=== PATIENT | male | born 1975 | race Caucasian/White ===

== ENCOUNTER 2021-07-13 10:28 | Emergency (ER) | payer OTHER ==
[2021-07-13] MEDS ORDERED: Iopamidol 755 Mg/ML 100 ML Bottle IV ONE (11:55)
[2021-07-13] MEDS ORDERED: Ketorolac 30 MG/ML SDV IVPUSH ONE (14:24)
== END 2021-07-13 14:37 | disposition home or self-care (01) ==
LOC: FB.ED 10:28
DX: S32.019A Unspecified fracture of first lumbar vertebra, initial encounter for closed fracture (principal); S00.93XA Contusion of unspecified part of head, initial encounter; V89.2XXA Person injured in unspecified motor-vehicle accident, traffic, initial encounter
CPT/HCPCS: 36415; 70450; 71260; 72125; 74177; 80053; 80307; 81001; 85025; 96374; 99283; 99284-25; J1885; Q9967